=== PATIENT | female | born 1955 | race Caucasian/White ===

== ENCOUNTER 2016-07-24 11:06 | Day surgery (SDC) | payer OTHER ==
[~2016-07-24] VITALS: Ht 160 cm; Wt 109.0 kg
[~2016-07-24 11:06] MED LIST: FENTANYL PF 250 MCG/5ML ONE; MIDAZOLAM 1 MG/ML, 2ML ONE
[2016-07-24] MEDS ORDERED: LACTATED RINGERS 1,000 ML IV SCH (11:30)
[2016-07-24 12:00] VITALS: BP 162/79
[2016-07-24] MEDS ORDERED: METOPROLOL 1 MG/ML, 5ML ONE (12:05)
[2016-07-24] MEDS ORDERED: ONDANSETRON 2MG/ML, 2ML ONE ×2 (12:05→13:15)
[2016-07-24] MEDS ORDERED: SUCCINYLCHOLINE 20 MG/ML, 10ML ONE (12:05)
[2016-07-24] MEDS ORDERED: GLYCOPYRROLATE 0.2MG/1ML ONE (12:05)
[2016-07-24] MEDS ORDERED: ROCURONIUM 10 MG/ML ONE (12:05)
[2016-07-24] MEDS ORDERED: NEOSTIGMINE 1 MG/ML, 10ML ONE (12:05)
[2016-07-24] MEDS ORDERED: PROPOFOL 10 MG/ML, 20ML ONE (12:05)
[2016-07-24] MEDS ORDERED: INSU100V13 SQ-INSULIN (12:18)
[2016-07-24] MEDS ORDERED: FOLI-17 PO (12:18)
[2016-07-24] MEDS ORDERED: LACT10SO28 PO (12:18)
[2016-07-24] MEDS ORDERED: ATOR20TA9 PO (12:18)
[2016-07-24] MEDS ORDERED: LOSA25TA5 PO (12:18)
[2016-07-24] MEDS ORDERED: IRON PO (12:18)
[2016-07-24] MEDS ORDERED: DOCU100C8 PO (12:18)
[2016-07-24] MEDS ORDERED: CHOL200024 PO (12:18)
[2016-07-24] MEDS ORDERED: PRAS1TAB3 PO (12:18)
[2016-07-24] MEDS ORDERED: CELE200C PO (12:18)
[2016-07-24] MEDS ORDERED: HYDR-3144 PO (12:18)
[2016-07-24] MEDS ORDERED: MULT1TAB9 PO (12:18)
[2016-07-24] MEDS ORDERED: ASPI-496 PO (12:18)
[2016-07-24] MEDS ORDERED: VITAMIN B-12 PO (12:18)
[2016-07-24] MEDS ORDERED: PREG150C PO (12:18)
[2016-07-24] MEDS ORDERED: LACT1CAP35 PO (12:19)
[2016-07-24] MEDS ORDERED: ONDA-40 PO (12:19)
[2016-07-24] MEDS ORDERED: COLE625T2 PO (12:19)
[2016-07-24] MEDS ORDERED: PARO10TA3 PO (12:19)
[2016-07-24] MEDS ORDERED: OMEP-110 PO (12:19)
[2016-07-24] MEDS ORDERED: NORT25CA PO (12:19)
[2016-07-24] MEDS ORDERED: ZOLP12.54 PO (12:19)
[2016-07-24] MEDS ORDERED: PRED1TAB PO (12:19)
[2016-07-24] MEDS ORDERED: ALBU18HF INH (12:19)
[2016-07-24] MEDS ORDERED: METF10002 PO (12:19)
[2016-07-24] MEDS ORDERED: MAGN71.5 PO (12:19)
[2016-07-24] MEDS ORDERED: METO50TA82 PO (12:19)
[2016-07-24] MEDS ORDERED: MORP60TA PO (12:19)
[2016-07-24] MEDS ORDERED: LABETALOL 5MG/ML, 20ML IV PRN (13:30)
[2016-07-24] MEDS ORDERED: hydrALAzine 20 MG/ML, 1ML IV PRN (13:30)
[2016-07-24] MEDS ORDERED: OXYcodone 5 MG/5 ML ORAL.SOL UDC PO PRN (13:30)
[2016-07-24] MEDS ORDERED: EPHEDRINE 50 MG/ML, 1ML IVPush PRN (13:30)
[2016-07-24] MEDS ORDERED: ONDANSETRON 2MG/ML, 2ML IVPush PRN (13:30)
[2016-07-24] MEDS ORDERED: FENTANYL PF 100 MCG/2ML IV PRN (13:30)
[2016-07-24] MEDS ORDERED: morphine SULFATE 10 MG/ML, 1ML IV PRN (13:30)
[2016-07-24] MEDS ORDERED: METOPROLOL 1 MG/ML, 5ML IV PRN (13:30)
[2016-07-24] MEDS ORDERED: ALBUTEROL SULFATE 2.5 MG/3 ML NPPB PRN (13:30)
[2016-07-24] MEDS ORDERED: ACETAMINOPHEN 325 MG TABLET PO PRN (13:30)
[2016-07-24] MEDS ORDERED: PROMETHAZINE 25 MG/ML, 1ML IV PRN (13:30)
== END 2016-07-24 14:35 ==
LOC: OUT 11:06
PROVIDERS: ATTEND Internal Medicine Geriatric Medicine
DX: R10.9 Unspecified abdominal pain (principal); R11.2 Nausea with vomiting, unspecified; J45.909 Unspecified asthma, uncomplicated; E78.5 Hyperlipidemia, unspecified; E11.22 Type 2 diabetes mellitus with diabetic chronic kidney disease; I12.9 Hypertensive chronic kidney disease with stage 1 through stage 4 chronic kidney disease, or unspecified chronic kidney disease; N18.9 Chronic kidney disease, unspecified; D86.9 Sarcoidosis, unspecified; Z87.891 Personal history of nicotine dependence; Z82.49 Family history of ischemic heart disease and other diseases of the circulatory system; Z83.3 Family history of diabetes mellitus; Z80.42 Family history of malignant neoplasm of prostate; Z96.611 Presence of right artificial shoulder joint; Z98.84 Bariatric surgery status
CPT/HCPCS: 36415; 44376; 80047; J0330; J2250; J2405; J2704; J2710; J3010; J7120; J3490

== ENCOUNTER → 2016-08-23 | Outpatient (CLI) | payer OTHER ==
[~2016-08-23] MED LIST changes: +ALBU18HF INH; +ASPI-496 PO; +ATOR20TA9 PO; +CELE200C PO; +CHOL200024 PO; +COLE625T2 PO; +DOCU100C8 PO; -FENTANYL PF 250 MCG/5ML ONE; +FOLI-17 PO; +HYDR-3144 PO; +INSU100V13 SQ-INSULIN; +IRON PO; +LACT10SO28 PO; +LACT1CAP35 PO; +LOSA25TA5 PO; +MAGN71.5 PO; +METF10002 PO; +METO50TA82 PO; -MIDAZOLAM 1 MG/ML, 2ML ONE; +MORP60TA PO; +MULT1TAB9 PO; +NORT25CA PO; +OMEP-110 PO; +ONDA-40 PO; +PARO10TA3 PO; +PRAS1TAB3 PO; +PRED1TAB PO; +PREG150C PO; +VITAMIN B-12 PO; +ZOLP12.54 PO
== END | disposition home or self-care (01) ==
LOC: CARD 16:09
PROVIDERS: ATTEND Specialist
DX: D86.0 Sarcoidosis of lung (principal)
CPT/HCPCS: 94010; 94726; 94729

== ENCOUNTER 2017-01-19 05:11 | Emergency (ER) | payer OTHER ==
[~2017-01-19] VITALS: Ht 160 cm; Wt 117.3 kg
[~2017-01-19 05:11] MED LIST changes: +COLE625T12 PO; -COLE625T2 PO; +DOCU100C33 PO; -DOCU100C8 PO; -HYDR-3144 PO; +HYDR-3245 PO; -ONDA-40 PO; +ONDA8TAB15 PO
[2017-01-19 06:40] LABS: DAU SCREEN DISCLAIMER
[2017-01-19] MEDS ORDERED: HYDROmorphone 1 MG/ML, 1ML ONE (07:16)
[2017-01-19] MEDS ORDERED: ONDANSETRON ODT 4 MG ONE (07:17)
[2017-01-19] MEDS ORDERED: HYDROmorphone 1 MG/ML, 1ML IM ONE (07:30)
[2017-01-19] MEDS ORDERED: ONDANSETRON ODT 4 MG PO ONE (07:30)
[2017-01-19 08:52] VITALS: BP 146/88
== END 2017-01-19 09:00 | disposition home or self-care (01) ==
LOC: ED 05:58
DX: Z76.0 Encounter for issue of repeat prescription (principal); M25.511 Pain in right shoulder; M54.9 Dorsalgia, unspecified; G89.29 Other chronic pain; E11.9 Type 2 diabetes mellitus without complications; I10 Essential (primary) hypertension; M19.90 Unspecified osteoarthritis, unspecified site
CPT/HCPCS: 80307; 96372; 99283; J1170; Q0162; G0479

== ENCOUNTER 2017-04-08 10:45 | Emergency (ER) | payer OTHER ==
[~2017-04-08] VITALS: Ht 160 cm; Wt 120.0 kg
[~2017-04-08 10:45] MED LIST changes: +ATOR-2 PO; +CALCIUM PO; +DOCU100T3 PO; +LOSA100T6 PO; +LOSA50TA2 PO; +LUBI24CA7 PO; +METF500T9 PO; +METH2.5T PO; +METO-93 PO; +MORPHINE PO; +OXYC-302 PO; +PARO20TA4 PO; +PRAS10TA4 PO
[2017-04-08] MEDS ORDERED: LOSA100T6 PO (11:25)
[2017-04-08] MEDS ORDERED: ATOR20TA9 PO (11:25)
[2017-04-08] MEDS ORDERED: OXYC-307 PO (11:25)
[2017-04-08] MEDS ORDERED: LORazepam 2 MG/ML, 1ML IVPush ONE (11:30)
[2017-04-08] MEDS ORDERED: ONDANSETRON 2MG/ML, 2ML IVPush ONE (11:30)
[2017-04-08] MEDS ORDERED: HYDROmorphone 1 MG/ML, 1ML IVPush PRN ×2 (11:30→13:30)
[2017-04-08] MEDS ORDERED: SODIUM CHLORIDE FLUSH 10ML SYR IVF ONE (11:30)
[2017-04-08] MEDS ORDERED: SODIUM CHLORIDE 0.9% 1,000ML IVBOLUS ONE (11:30)
[2017-04-08] MEDS ORDERED: morphine SULFATE 10 MG/ML, 1ML ONE ×2 (11:39→14:16)
[2017-04-08] MEDS ORDERED: ONDANSETRON 2MG/ML, 2ML ONE (11:39)
[2017-04-08] MEDS ORDERED: LORazepam 2 MG/ML, 1ML ONE (11:40)
[2017-04-08 11:53] LABS: HEMATOCRIT 36.2 % (34.6-47.8); HEMOGLOBIN 11.9 g/dL (11.7-16.4); WHITE BLOOD COUNT 4.9 x10^3/uL (3.4-10)
[2017-04-08] MEDS: MORPHINE SULFATE 4 MG/ML, 1ML IVPush PRN ×2 (11:54→14:19)
[2017-04-08 12:03] LABS: BLOOD UREA NITROGEN 12 mg/dL (7-18)
[2017-04-08 12:07] LABS: ASPARTATE AMINO TRANSFERASE 20 U/L (15-37)
[2017-04-08 12:46] LABS: DAU SCREEN DISCLAIMER
[2017-04-08 17:01] VITALS: BP 134/70
== END 2017-04-08 17:04 | disposition home or self-care (01) ==
LOC: ED 13:42
DX: M25.511 Pain in right shoulder (principal); M25.561 Pain in right knee; R06.00 Dyspnea, unspecified; R10.84 Generalized abdominal pain; R11.2 Nausea with vomiting, unspecified; I12.9 Hypertensive chronic kidney disease with stage 1 through stage 4 chronic kidney disease, or unspecified chronic kidney disease; N18.3 Chronic kidney disease, stage 3 (moderate); E11.65 Type 2 diabetes mellitus with hyperglycemia; E11.22 Type 2 diabetes mellitus with diabetic chronic kidney disease; M79.7 Fibromyalgia; M19.90 Unspecified osteoarthritis, unspecified site; J44.9 Chronic obstructive pulmonary disease, unspecified; E66.01 Morbid (severe) obesity due to excess calories
CPT/HCPCS: 36415; 71010; 80053; 80307; 81001; 83605; 85025; 87077; 87086; 87147; 87186; 96361; 96374; 96375; 96376; 99285; J2060; J2405; J7030; G0479

== ENCOUNTER 2017-05-08 16:06 | Inpatient (IN) | payer OTHER ==
[~2017-05-08] VITALS: Ht 160 cm; Wt 112.2 kg
[~2017-05-08 16:06] MED LIST changes: +GABA300C10 PO; +ONDANSETRON 2MG/ML, 2ML ONE; +OXYC-307 PO; +PROPOFOL 10 MG/ML, 20ML ONE; +ROCURONIUM 10 MG/ML,10ML ONE; +SUCCINYLCHOLINE 20 MG/ML, 10ML ONE; +TIZA2CAP PO
[2017-05-08 17:12] VITALS: BP 136/85
[2017-05-08] MEDS ORDERED: ACETAMINOPHEN 325 MG TABLET PO PRN (18:00)
[2017-05-08] MEDS ORDERED: ONDANSETRON 2MG/ML, 2ML IVPush PRN (18:00)
[2017-05-08] MEDS ORDERED: hydrALAzine 20 MG/ML, 1ML IV PRN (18:00)
[2017-05-08] MEDS ORDERED: LABETALOL 5MG/ML, 20ML IV PRN (18:00)
[2017-05-08] MEDS ORDERED: PROMETHAZINE 25 MG/ML, 1ML IV PRN (18:00)
[2017-05-08] MEDS ORDERED: OXYcodone 5 MG/5 ML ORAL.SOL UDC PO PRN (18:00)
[2017-05-08] MEDS ORDERED: PLEASE ENTER HEIGHT AND WEIGHT MC SCH ×2 (18:30→21:00)
[2017-05-08] MEDS ORDERED: FENTANYL PF 250 MCG/5ML ONE (18:36)
[2017-05-08] MEDS ORDERED: VANCOMYCIN 1,000 MG ONE (19:11)
[2017-05-08] MEDS ORDERED: VANCOMYCIN 500 MG ONE (19:11)
[2017-05-08] MEDS ORDERED: PIPERACILLIN/TAZO/PMX 3.375GM 50 ML ONE (19:12)
[2017-05-08] MEDS: morphine SULFATE 10 MG/ML, 1ML IV PRN ×2 (19:51→20:08)
[2017-05-08] MEDS ORDERED: morphine SULFATE 10 MG/ML, 1ML ONE (19:53)
[2017-05-08] MEDS ORDERED: ACETAMINOPHEN 650 MG/20.3 ML UDC ONE (19:53)
[2017-05-08] MEDS ORDERED: OXYcodone 5 MG/5 ML ORAL.SOL UDC ONE (19:53)
[2017-05-08] MEDS ORDERED: FENTANYL PF 100 MCG/2ML ONE (20:10)
[2017-05-08] MEDS: FENTANYL PF 100 MCG/2ML IV PRN ×2 (20:12→20:31)
[2017-05-08 21:00] VITALS: BP 124/72
[2017-05-08] MEDS ORDERED: VANCOMYCIN PER PHARMACY MC PRN (23:00)
[2017-05-08] MEDS ORDERED: PHARMACOKINETIC CONSULTATION MC ONE (23:00)
[2017-05-08] MEDS ORDERED: PHARMACOKINETIC MONITORING MC PRN (23:00)
[2017-05-08] MEDS: OXYcodone IR 5MG TABLET PO PRN (23:20)
[2017-05-09] MEDS: MORPHINE SULFATE 4 MG/ML, 1ML IV PRN ×6 (01:15→22:36)
[2017-05-09] MEDS: PIPERACILLIN/TAZO/PMX 3.375GM 50 ML IV SCH ×3 (03:31→22:03)
[2017-05-09 03:55] VITALS: BP 109/64
[2017-05-09] MEDS: OXYcodone IR 5MG TABLET PO PRN ×5 (06:49→23:36)
[2017-05-09 08:23] VITALS: BP 118/76
[2017-05-09] MEDS: INSULIN ASPART 100 UNITS/ML, PEN SQ-INSULIN SCH ×4 (09:07→20:48)
[2017-05-09] MEDS: INSULIN DETEMIR 100 UNITS/ML, PEN SQ-INSULIN SCH ×2 (09:08→20:48)
[2017-05-09] MEDS: GABAPENTIN 300 MG CAPSULE PO SCH ×3 (09:08→20:30)
[2017-05-09] MEDS: LOSARTAN 50MG TABLET PO SCH (09:08)
[2017-05-09] MEDS: OMEPRAZOLE 20 MG CAPSULE.DR PO SCH (09:09)
[2017-05-09] MEDS: PRASUGREL 10 MG TABLET PO SCH (09:09)
[2017-05-09] MEDS: PAROXETINE 20 MG TABLET PO SCH (09:09)
[2017-05-09] MEDS: PREGABALIN 150 MG CAPSULE PO SCH ×2 (09:09→20:30)
[2017-05-09 15:23] VITALS: BP 120/72
[2017-05-09] MEDS ORDERED: ZOLPIDEM 10MG TABLET PO PRN (18:00)
[2017-05-09] MEDS ORDERED: VANCOMYCIN 2,000 MG in SODIUM CHLORIDE 0.9% 500 ML IV SCH (19:00)
[2017-05-09 19:01] LABS: HCT (SEDRATE) 24.3 % (34.6-47.8)
[2017-05-09 19:02] LABS: BASOPHILS # (AUTO) 0.08 x10^3/uL (0-0.1); BASOPHILS % (AUTO) 1 % (0-1); EOSINOPHILS # (AUTO) 0.22 x10^3/uL (0-0.4); EOSINOPHILS % (AUTO) 4 % (1-7); LYMPHOCYTES % (AUTO) 14 % (22-44); MD NO; MEAN CORPUSCULAR HEMOGLOBIN 31.4 pg (27.0-34.8); MEAN CORPUSCULAR HGB CONC 32.5 g/dL (32.4-35.8); MEAN CORPUSCULAR VOLUME 96.6 fL (80-100); MEAN PLATELET VOLUME 6.7 fL (7.4-10.4); MONOCYTES # (AUTO) 0.66 x10^3/uL (0.2-0.8); MONOCYTES % (AUTO) 11 % (2-9); NEUTROPHILS % (AUTO) 71 % (42-75); PLATELET COUNT 460 x10^3/uL (130-400); RED BLOOD COUNT 2.47 x10^6/uL (3.82-5.3); RED CELL DISTRIBUTION WIDTH 15.8 % (9.6-15.2)
[2017-05-09 19:14] LABS: ANION GAP 8 mmol/L (5-15); CALCIUM 7.9 mg/dL (8.5-10.1); CHLORIDE 109 mmol/L (98-107); CREATININE 1.07 mg/dL (0.55-1.02)
[2017-05-09 19:27] VITALS: BP 124/72
[2017-05-09] MEDS: ATORVASTATIN 20 MG TABLET PO SCH (20:30)
[2017-05-09] MEDS: METOPROLOL SUCCINATE 50 MG TAB.ER.24H PO SCH (20:30)
[2017-05-09] MEDS: NORTRIPTYLINE 25 MG CAPSULE PO SCH (20:30)
[2017-05-10] MEDS: PIPERACILLIN/TAZO/PMX 3.375GM 50 ML IV SCH ×3 (04:16→21:46)
[2017-05-10] MEDS: OXYcodone IR 5MG TABLET PO PRN ×6 (04:16→21:48)
[2017-05-10 04:18] VITALS: BP 153/88
[2017-05-10] MEDS: INSULIN ASPART 100 UNITS/ML, PEN SQ-INSULIN SCH ×4 (07:00→22:19)
[2017-05-10 07:34] VITALS: BP 155/84
[2017-05-10] MEDS ORDERED: ZOLPIDEM 10MG TABLET PO PRN (08:00)
[2017-05-10] MEDS: MORPHINE SULFATE 4 MG/ML, 1ML IV PRN ×4 (08:05→19:55)
[2017-05-10] MEDS ORDERED: OXYcodone IR 5MG TABLET ONE ×2 (08:32→13:50)
[2017-05-10] MEDS: ASPIRIN 81 MG TABLET EC PO SCH (08:39)
[2017-05-10] MEDS: FOLIC ACID 1 MG TABLET PO SCH ×2 (08:39→21:47)
[2017-05-10] MEDS: MAGNESIUM CHLORIDE 64 MG TABLET.DR PO SCH ×2 (08:39→21:46)
[2017-05-10] MEDS: MULTIVITAMIN 1 TABLET PO SCH (08:40)
[2017-05-10] MEDS: LACTOBACILLUS CHEW TABLET PO SCH (08:40)
[2017-05-10] MEDS: DOCUSATE 100 MG CAPSULE PO SCH ×2 (08:40→22:18)
[2017-05-10] MEDS: COLESEVELAM 625 MG TABLET PO SCH ×2 (08:41→21:47)
[2017-05-10] MEDS: GABAPENTIN 300 MG CAPSULE PO SCH ×2 (08:41→17:18)
[2017-05-10] MEDS: LUBIPROSTONE 24 MCG CAPSULE PO SCH ×2 (08:41→21:46)
[2017-05-10] MEDS: OMEPRAZOLE 20 MG CAPSULE.DR PO SCH (08:42)
[2017-05-10] MEDS: PRASUGREL 10 MG TABLET PO SCH (08:44)
[2017-05-10] MEDS: LOSARTAN 50MG TABLET PO SCH (08:44)
[2017-05-10] MEDS: PREGABALIN 150 MG CAPSULE PO SCH ×2 (08:45→21:47)
[2017-05-10] MEDS: PAROXETINE 20 MG TABLET PO SCH (08:45)
[2017-05-10] MEDS: CALCIUM CARBONATE 500 MG TAB.CHEW PO SCH (08:46)
[2017-05-10] MEDS ORDERED: LACTULOSE 10 GM/15 ML UDC PO SCH (09:00)
[2017-05-10] MEDS ORDERED: LACTULOSE 10 GM/15 ML UDC PO PRN (09:30)
[2017-05-10] MEDS: FERROUS SULFATE 325 MG TABLET PO SCH (10:17)
[2017-05-10] MEDS: TIZANIDINE 2MG TABLET PO SCH ×2 (10:17→21:47)
[2017-05-10] MEDS: INSULIN DETEMIR 100 UNITS/ML, PEN SQ-INSULIN SCH ×2 (10:19→22:19)
[2017-05-10 14:08] VITALS: BP 153/84
[2017-05-10 19:14] VITALS: BP 153/87
[2017-05-10] MEDS ORDERED: MORPHINE SULFATE 4 MG/ML, 1ML ONE (19:45)
[2017-05-10] MEDS ORDERED: OXYcodone/APAP 10/325MG TABLET PO SCH (21:00)
[2017-05-10] MEDS ORDERED: MORPHINE SULFATE 4 MG/ML, 1ML IV PRN (21:00)
[2017-05-10] MEDS: NORTRIPTYLINE 25 MG CAPSULE PO SCH (21:46)
[2017-05-10] MEDS: METOPROLOL SUCCINATE 50 MG TAB.ER.24H PO SCH (21:47)
[2017-05-10] MEDS: ATORVASTATIN 20 MG TABLET PO SCH (21:47)
[2017-05-10] MEDS: ZOLPIDEM 10MG TABLET PO PRN (22:18)
[2017-05-11 02:37] VITALS: BP 144/76
[2017-05-11] MEDS: OXYcodone IR 5MG TABLET PO PRN ×5 (02:52→23:06)
[2017-05-11] MEDS: MORPHINE SULFATE 4 MG/ML, 1ML IV PRN ×4 (05:06→20:48)
[2017-05-11] MEDS: PIPERACILLIN/TAZO/PMX 3.375GM 50 ML IV SCH ×2 (05:06→13:44)
[2017-05-11 05:41] LABS: CHLORIDE 110 mmol/L (98-107)
[2017-05-11 05:59] LABS: ALANINE AMINOTRANSFERASE 15 U/L (12-78); ALBUMIN 2.2 g/dL (3.4-5.0); ALKALINE PHOSPHATASE 88 U/L (45-117); ANION GAP 9 mmol/L (5-15); BILIRUBIN,TOTAL 0.2 mg/dL (0.2-1.0); CALCIUM 8.4 mg/dL (8.5-10.1); CREATININE 0.89 mg/dL (0.55-1.02); TOTAL PROTEIN 5.5 g/dL (6.4-8.2)
[2017-05-11 06:09] LABS: HEMOGLOBIN A1C 8.1 % (4.2-6.3)
[2017-05-11] MEDS: INSULIN ASPART 100 UNITS/ML, PEN SQ-INSULIN SCH ×4 (06:59→21:00)
[2017-05-11 07:05] VITALS: BP 127/78
[2017-05-11] MEDS: DOCUSATE 100 MG CAPSULE PO SCH ×2 (08:21→20:49)
[2017-05-11] MEDS: LACTOBACILLUS CHEW TABLET PO SCH (08:21)
[2017-05-11] MEDS: FERROUS SULFATE 325 MG TABLET PO SCH (08:21)
[2017-05-11] MEDS: PREGABALIN 150 MG CAPSULE PO SCH ×2 (08:22→20:50)
[2017-05-11] MEDS: FOLIC ACID 1 MG TABLET PO SCH ×2 (08:22→20:49)
[2017-05-11] MEDS: CALCIUM CARBONATE 500 MG TAB.CHEW PO SCH (08:22)
[2017-05-11] MEDS: LOSARTAN 50MG TABLET PO SCH (08:22)
[2017-05-11] MEDS: MULTIVITAMIN 1 TABLET PO SCH (08:22)
[2017-05-11] MEDS: OMEPRAZOLE 20 MG CAPSULE.DR PO SCH (08:23)
[2017-05-11] MEDS: COLESEVELAM 625 MG TABLET PO SCH ×2 (08:23→20:49)
[2017-05-11] MEDS: PAROXETINE 20 MG TABLET PO SCH (08:23)
[2017-05-11] MEDS: ASPIRIN 81 MG TABLET EC PO SCH (08:23)
[2017-05-11] MEDS: TIZANIDINE 2MG TABLET PO SCH ×2 (08:24→20:50)
[2017-05-11] MEDS: LUBIPROSTONE 24 MCG CAPSULE PO SCH ×2 (08:24→20:50)
[2017-05-11] MEDS: MAGNESIUM CHLORIDE 64 MG TABLET.DR PO SCH ×2 (08:25→20:49)
[2017-05-11] MEDS: PRASUGREL 10 MG TABLET PO SCH (08:26)
[2017-05-11] MEDS: INSULIN DETEMIR 100 UNITS/ML, PEN SQ-INSULIN SCH ×2 (08:27→21:35)
[2017-05-11 13:35] VITALS: BP 119/79
[2017-05-11] MEDS: CEFTRIAXONE PMX 2GM/50ML 50 ML IV SCH (17:45)
[2017-05-11] MEDS: NORTRIPTYLINE 25 MG CAPSULE PO SCH (20:49)
[2017-05-11] MEDS: ATORVASTATIN 20 MG TABLET PO SCH (20:49)
[2017-05-11] MEDS: METOPROLOL SUCCINATE 50 MG TAB.ER.24H PO SCH (20:49)
[2017-05-11 22:27] VITALS: BP 113/71
[2017-05-11] MEDS: ZOLPIDEM 10MG TABLET PO PRN (23:06)
[2017-05-12] MEDS: OXYcodone IR 5MG TABLET PO PRN ×5 (03:05→20:57)
[2017-05-12 04:11] VITALS: BP 118/75
[2017-05-12] MEDS: INSULIN ASPART 100 UNITS/ML, PEN SQ-INSULIN SCH ×4 (06:46→20:57)
[2017-05-12 07:21] VITALS: BP 95/62
[2017-05-12] MEDS: MORPHINE SULFATE 4 MG/ML, 1ML IV PRN ×3 (08:42→23:01)
[2017-05-12] MEDS: DOCUSATE 100 MG CAPSULE PO SCH ×2 (08:43→20:56)
[2017-05-12] MEDS: LACTOBACILLUS CHEW TABLET PO SCH (08:43)
[2017-05-12] MEDS: OMEPRAZOLE 20 MG CAPSULE.DR PO SCH (08:43)
[2017-05-12] MEDS: MAGNESIUM CHLORIDE 64 MG TABLET.DR PO SCH ×2 (08:43→20:56)
[2017-05-12] MEDS: FOLIC ACID 1 MG TABLET PO SCH ×2 (08:43→20:56)
[2017-05-12] MEDS: CALCIUM CARBONATE 500 MG TAB.CHEW PO SCH (08:43)
[2017-05-12] MEDS: ASPIRIN 81 MG TABLET EC PO SCH (08:43)
[2017-05-12] MEDS: LUBIPROSTONE 24 MCG CAPSULE PO SCH ×2 (08:44→20:55)
[2017-05-12] MEDS: COLESEVELAM 625 MG TABLET PO SCH ×2 (08:45→20:56)
[2017-05-12] MEDS: TIZANIDINE 2MG TABLET PO SCH ×2 (08:45→23:01)
[2017-05-12] MEDS: LOSARTAN 50MG TABLET PO SCH (08:45)
[2017-05-12] MEDS: MULTIVITAMIN 1 TABLET PO SCH (08:46)
[2017-05-12] MEDS: PAROXETINE 20 MG TABLET PO SCH (08:46)
[2017-05-12] MEDS: PRASUGREL 10 MG TABLET PO SCH (08:47)
[2017-05-12] MEDS: FERROUS SULFATE 325 MG TABLET PO SCH (08:47)
[2017-05-12] MEDS: PREGABALIN 150 MG CAPSULE PO SCH ×2 (08:47→20:56)
[2017-05-12] MEDS: INSULIN DETEMIR 100 UNITS/ML, PEN SQ-INSULIN SCH ×2 (08:52→20:58)
[2017-05-12 14:00] VITALS: BP 103/68
[2017-05-12] MEDS: CEFTRIAXONE PMX 2GM/50ML 50 ML IV SCH (17:58)
[2017-05-12 20:49] VITALS: BP 125/75
[2017-05-12] MEDS: NORTRIPTYLINE 25 MG CAPSULE PO SCH (20:55)
[2017-05-12] MEDS: ATORVASTATIN 20 MG TABLET PO SCH (20:56)
[2017-05-12] MEDS: METOPROLOL SUCCINATE 50 MG TAB.ER.24H PO SCH (20:56)
[2017-05-12 21:03] VITALS: BP 124/72
[2017-05-13] MEDS: OXYcodone IR 5MG TABLET PO PRN ×5 (01:13→21:54)
[2017-05-13 05:11] VITALS: BP 107/68
[2017-05-13] MEDS: INSULIN ASPART 100 UNITS/ML, PEN SQ-INSULIN SCH ×4 (07:03→21:54)
[2017-05-13 07:10] VITALS: BP 115/72
[2017-05-13] MEDS: MORPHINE SULFATE 4 MG/ML, 1ML IV PRN ×3 (08:17→21:19)
[2017-05-13] MEDS: FERROUS SULFATE 325 MG TABLET PO SCH (08:18)
[2017-05-13] MEDS: MULTIVITAMIN 1 TABLET PO SCH (08:18)
[2017-05-13] MEDS: PREGABALIN 150 MG CAPSULE PO SCH ×2 (08:18→21:22)
[2017-05-13] MEDS: DOCUSATE 100 MG CAPSULE PO SCH ×2 (08:18→21:23)
[2017-05-13] MEDS: LUBIPROSTONE 24 MCG CAPSULE PO SCH ×2 (08:18→21:22)
[2017-05-13] MEDS: MAGNESIUM CHLORIDE 64 MG TABLET.DR PO SCH ×2 (08:18→21:22)
[2017-05-13] MEDS: PRASUGREL 10 MG TABLET PO SCH (08:19)
[2017-05-13] MEDS: COLESEVELAM 625 MG TABLET PO SCH ×2 (08:19→21:22)
[2017-05-13] MEDS: ASPIRIN 81 MG TABLET EC PO SCH (08:19)
[2017-05-13] MEDS: LACTOBACILLUS CHEW TABLET PO SCH (08:19)
[2017-05-13] MEDS: LOSARTAN 50MG TABLET PO SCH (08:19)
[2017-05-13] MEDS: TIZANIDINE 2MG TABLET PO SCH ×2 (08:20→22:52)
[2017-05-13] MEDS: CALCIUM CARBONATE 500 MG TAB.CHEW PO SCH (08:20)
[2017-05-13] MEDS: FOLIC ACID 1 MG TABLET PO SCH ×2 (08:20→21:23)
[2017-05-13] MEDS: PAROXETINE 20 MG TABLET PO SCH (08:20)
[2017-05-13] MEDS: OMEPRAZOLE 20 MG CAPSULE.DR PO SCH (08:21)
[2017-05-13] MEDS: INSULIN DETEMIR 100 UNITS/ML, PEN SQ-INSULIN SCH ×2 (08:28→21:54)
[2017-05-13 14:13] VITALS: BP 143/78
[2017-05-13] MEDS: CEFTRIAXONE PMX 2GM/50ML 50 ML IV SCH (17:59)
[2017-05-13 20:28] VITALS: BP 136/84
[2017-05-13] MEDS: METOPROLOL SUCCINATE 50 MG TAB.ER.24H PO SCH (21:22)
[2017-05-13] MEDS: ATORVASTATIN 20 MG TABLET PO SCH (21:22)
[2017-05-13] MEDS: NORTRIPTYLINE 25 MG CAPSULE PO SCH (21:22)
[2017-05-14 02:05] VITALS: BP 133/81
[2017-05-14] MEDS: OXYcodone IR 5MG TABLET PO PRN ×5 (02:09→21:40)
[2017-05-14 06:07] LABS: BASOPHILS # (AUTO) 0.04 x10^3/uL (0-0.1); BASOPHILS % (AUTO) 1 % (0-1); EOSINOPHILS # (AUTO) 0.31 x10^3/uL (0-0.4); EOSINOPHILS % (AUTO) 5 % (1-7); LYMPHOCYTES # (AUTO) 1.09 x10^3/uL (1-3.4); LYMPHOCYTES % (AUTO) 19 % (22-44); MD NO; MEAN CORPUSCULAR HEMOGLOBIN 31.4 pg (27.0-34.8); MEAN CORPUSCULAR VOLUME 95.2 fL (80-100); MEAN PLATELET VOLUME 6.3 fL (7.4-10.4); MONOCYTES % (AUTO) 12 % (2-9); NEUTROPHILS # (AUTO) 3.69 x10^3/uL (1.8-6.8); NEUTROPHILS % (AUTO) 63 % (42-75); PLATELET COUNT 548 x10^3/uL (130-400); RED BLOOD COUNT 2.56 x10^6/uL (3.82-5.3); RED CELL DISTRIBUTION WIDTH 15.9 % (9.6-15.2)
[2017-05-14 07:18] VITALS: BP 120/68
[2017-05-14] MEDS: MORPHINE SULFATE 4 MG/ML, 1ML IV PRN ×3 (08:25→19:34)
[2017-05-14] MEDS: MULTIVITAMIN 1 TABLET PO SCH (08:46)
[2017-05-14] MEDS: DOCUSATE 100 MG CAPSULE PO SCH ×2 (08:46→19:55)
[2017-05-14] MEDS: PAROXETINE 20 MG TABLET PO SCH (08:47)
[2017-05-14] MEDS: FOLIC ACID 1 MG TABLET PO SCH ×2 (08:47→19:55)
[2017-05-14] MEDS: LOSARTAN 50MG TABLET PO SCH (08:47)
[2017-05-14] MEDS: MAGNESIUM CHLORIDE 64 MG TABLET.DR PO SCH ×2 (08:47→19:54)
[2017-05-14] MEDS: FERROUS SULFATE 325 MG TABLET PO SCH (08:48)
[2017-05-14] MEDS: LACTOBACILLUS CHEW TABLET PO SCH (08:48)
[2017-05-14] MEDS: CALCIUM CARBONATE 500 MG TAB.CHEW PO SCH (08:48)
[2017-05-14] MEDS: ASPIRIN 81 MG TABLET EC PO SCH (08:48)
[2017-05-14] MEDS: PREGABALIN 150 MG CAPSULE PO SCH ×2 (08:49→19:55)
[2017-05-14] MEDS: LUBIPROSTONE 24 MCG CAPSULE PO SCH ×2 (08:49→19:55)
[2017-05-14] MEDS: PRASUGREL 10 MG TABLET PO SCH (08:52)
[2017-05-14] MEDS: INSULIN DETEMIR 100 UNITS/ML, PEN SQ-INSULIN SCH ×2 (08:53→19:56)
[2017-05-14] MEDS: INSULIN ASPART 100 UNITS/ML, PEN SQ-INSULIN SCH ×4 (08:53→19:56)
[2017-05-14] MEDS: COLESEVELAM 625 MG TABLET PO SCH ×2 (08:54→19:55)
[2017-05-14] MEDS: TIZANIDINE 2MG TABLET PO SCH ×2 (08:54→21:00)
[2017-05-14] MEDS: OMEPRAZOLE 20 MG CAPSULE.DR PO SCH (08:54)
[2017-05-14] MEDS ORDERED: METHOTREXATE 2.5 MG TABLET PO SCH (09:00)
[2017-05-14 12:48] VITALS: BP 129/73
[2017-05-14] MEDS: CEFTRIAXONE PMX 2GM/50ML 50 ML IV SCH (17:03)
[2017-05-14 19:32] VITALS: BP 109/71
[2017-05-14] MEDS: ATORVASTATIN 20 MG TABLET PO SCH (19:54)
[2017-05-14] MEDS: NORTRIPTYLINE 25 MG CAPSULE PO SCH (19:54)
[2017-05-14] MEDS: METOPROLOL SUCCINATE 50 MG TAB.ER.24H PO SCH (19:55)
[2017-05-14] MEDS: ZOLPIDEM 10MG TABLET PO PRN (22:20)
[2017-05-15 02:23] VITALS: BP 147/75
[2017-05-15] MEDS: OXYcodone IR 5MG TABLET PO PRN ×4 (02:23→16:56)
[2017-05-15] MEDS: INSULIN ASPART 100 UNITS/ML, PEN SQ-INSULIN SCH ×4 (07:00→21:33)
[2017-05-15 07:26] VITALS: BP 112/71
[2017-05-15] MEDS: TIZANIDINE 2MG TABLET PO SCH ×2 (09:00→21:23)
[2017-05-15] MEDS: MAGNESIUM CHLORIDE 64 MG TABLET.DR PO SCH ×2 (09:19→21:21)
[2017-05-15] MEDS: PAROXETINE 20 MG TABLET PO SCH (09:19)
[2017-05-15] MEDS: FERROUS SULFATE 325 MG TABLET PO SCH (09:19)
[2017-05-15] MEDS: FOLIC ACID 1 MG TABLET PO SCH ×2 (09:19→21:22)
[2017-05-15] MEDS: CALCIUM CARBONATE 500 MG TAB.CHEW PO SCH (09:20)
[2017-05-15] MEDS: OMEPRAZOLE 20 MG CAPSULE.DR PO SCH (09:20)
[2017-05-15] MEDS: MULTIVITAMIN 1 TABLET PO SCH (09:20)
[2017-05-15] MEDS: ASPIRIN 81 MG TABLET EC PO SCH (09:20)
[2017-05-15] MEDS: LOSARTAN 50MG TABLET PO SCH (09:20)
[2017-05-15] MEDS: COLESEVELAM 625 MG TABLET PO SCH ×2 (09:20→21:22)
[2017-05-15] MEDS: LACTOBACILLUS CHEW TABLET PO SCH (09:20)
[2017-05-15] MEDS: PRASUGREL 10 MG TABLET PO SCH (09:21)
[2017-05-15] MEDS: LUBIPROSTONE 24 MCG CAPSULE PO SCH ×2 (09:21→21:23)
[2017-05-15] MEDS: DOCUSATE 100 MG CAPSULE PO SCH ×2 (09:21→21:22)
[2017-05-15] MEDS: MORPHINE SULFATE 4 MG/ML, 1ML IV PRN ×2 (09:21→14:46)
[2017-05-15] MEDS: PREGABALIN 150 MG CAPSULE PO SCH ×2 (09:21→21:23)
[2017-05-15] MEDS: INSULIN DETEMIR 100 UNITS/ML, PEN SQ-INSULIN SCH ×2 (09:23→21:32)
[2017-05-15] MEDS ORDERED: CEFT2FRO2 IV (10:42)
[2017-05-15 13:35] VITALS: BP 111/71
[2017-05-15] MEDS: CEFTRIAXONE PMX 2GM/50ML 50 ML IV SCH (16:57)
[2017-05-15 20:00] VITALS: BP 126/89
[2017-05-15] MEDS: NORTRIPTYLINE 25 MG CAPSULE PO SCH (21:22)
[2017-05-15] MEDS: ATORVASTATIN 20 MG TABLET PO SCH (21:22)
[2017-05-15] MEDS: ZOLPIDEM 10MG TABLET PO PRN (21:22)
[2017-05-15] MEDS: METOPROLOL SUCCINATE 50 MG TAB.ER.24H PO SCH (21:23)
[2017-05-16] MEDS: OXYcodone IR 5MG TABLET PO PRN ×3 (00:41→13:21)
[2017-05-16 04:54] VITALS: BP 128/72
[2017-05-16] MEDS: INSULIN ASPART 100 UNITS/ML, PEN SQ-INSULIN SCH ×2 (06:38→11:28)
[2017-05-16] MEDS: OMEPRAZOLE 20 MG CAPSULE.DR PO SCH (07:54)
[2017-05-16] MEDS: FOLIC ACID 1 MG TABLET PO SCH (07:56)
[2017-05-16] MEDS: MULTIVITAMIN 1 TABLET PO SCH (07:56)
[2017-05-16] MEDS: PAROXETINE 20 MG TABLET PO SCH (07:56)
[2017-05-16] MEDS: LACTOBACILLUS CHEW TABLET PO SCH (07:56)
[2017-05-16] MEDS: LOSARTAN 50MG TABLET PO SCH (07:57)
[2017-05-16] MEDS: CALCIUM CARBONATE 500 MG TAB.CHEW PO SCH (07:57)
[2017-05-16] MEDS: MAGNESIUM CHLORIDE 64 MG TABLET.DR PO SCH (07:57)
[2017-05-16] MEDS: DOCUSATE 100 MG CAPSULE PO SCH (07:57)
[2017-05-16] MEDS: ASPIRIN 81 MG TABLET EC PO SCH (07:57)
[2017-05-16] MEDS: FERROUS SULFATE 325 MG TABLET PO SCH (07:57)
[2017-05-16] MEDS: COLESEVELAM 625 MG TABLET PO SCH (07:57)
[2017-05-16] MEDS: LUBIPROSTONE 24 MCG CAPSULE PO SCH (07:58)
[2017-05-16] MEDS: PRASUGREL 10 MG TABLET PO SCH (07:58)
[2017-05-16] MEDS: TIZANIDINE 2MG TABLET PO SCH (07:58)
[2017-05-16] MEDS: PREGABALIN 150 MG CAPSULE PO SCH (07:59)
[2017-05-16 08:00] VITALS: BP 110/71
[2017-05-16 08:36] LABS: ANION GAP 6 mmol/L (5-15); CALCIUM 8.7 mg/dL (8.5-10.1); CHLORIDE 106 mmol/L (98-107); CREATININE 0.92 mg/dL (0.55-1.02)
[2017-05-16] MEDS: INSULIN DETEMIR 100 UNITS/ML, PEN SQ-INSULIN SCH (10:07)
[2017-05-16] MEDS: MORPHINE SULFATE 4 MG/ML, 1ML IV PRN (11:28)
[2017-05-16 13:28] VITALS: BP 120/69
[2017-05-16] MEDS ORDERED: ONDA4TAB10 PO (15:57)
[2017-05-16] MEDS ORDERED: INSU100I18 SQ-INSULIN (15:57)
[2017-05-16] MEDS ORDERED: CEFTRIAXONE 2,000 MG in DEXTROSE 5% 50 ML IV SCH (17:30)
== END 2017-05-16 16:05 | DRG 463 ==
LOC: OUT 16:06 → 4NOR 17:05 → OUT 22:36
PROVIDERS: ADMIT Orthopaedic Surgery; ATTEND Family Medicine
PROC: 0JBD0ZZ Excision of Right Upper Arm Subcutaneous Tissue and Fascia, Open Approach (ICD-10-PCS; principal; 2017-05-08 18:00)
PROC: 02HV33Z Insertion of Infusion Device into Superior Vena Cava, Percutaneous Approach (ICD-10-PCS; 2017-05-13)
PROC: B548ZZA Ultrasonography of Superior Vena Cava, Guidance (ICD-10-PCS; 2017-05-13)
DX: T84.59XA Infection and inflammatory reaction due to other internal joint prosthesis, initial encounter (principal); E43 Unspecified severe protein-calorie malnutrition; E11.22 Type 2 diabetes mellitus with diabetic chronic kidney disease; E23.0 Hypopituitarism; E11.69 Type 2 diabetes mellitus with other specified complication; L03.115 Cellulitis of right lower limb; I12.0 Hypertensive chronic kidney disease with stage 5 chronic kidney disease or end stage renal disease; N18.5 Chronic kidney disease, stage 5; E27.40 Unspecified adrenocortical insufficiency; J44.0 Chronic obstructive pulmonary disease with (acute) lower respiratory infection; Z68.41 Body mass index [BMI] 40.0-44.9, adult; M86.8X2 Other osteomyelitis, upper arm; G89.29 Other chronic pain; D86.9 Sarcoidosis, unspecified; E78.5 Hyperlipidemia, unspecified; Z96.611 Presence of right artificial shoulder joint; Y83.9 Surgical procedure, unspecified as the cause of abnormal reaction of the patient, or of later complication, without mention of misadventure at the time of the procedure; H40.9 Unspecified glaucoma; B95.4 Other streptococcus as the cause of diseases classified elsewhere; I25.10 Atherosclerotic heart disease of native coronary artery without angina pectoris; K21.9 Gastro-esophageal reflux disease without esophagitis; L91.0 Hypertrophic scar; N20.0 Calculus of kidney; Z79.4 Long term (current) use of insulin; Z87.440 Personal history of urinary (tract) infections; Z87.891 Personal history of nicotine dependence; Z90.49 Acquired absence of other specified parts of digestive tract; Z98.84 Bariatric surgery status; Y92.89 Other specified places as the place of occurrence of the external cause; I25.2 Old myocardial infarction; Z79.899 Other long term (current) drug therapy; Z88.0 Allergy status to penicillin; Z88.5 Allergy status to narcotic agent; Z88.8 Allergy status to other drugs, medicaments and biological substances; E66.01 Morbid (severe) obesity due to excess calories
CPT/HCPCS: 10022; 36415; 76937; 77001; 80048; 80053; 82306; 82962; 83036; 85025; 85651; 86140; 87040; 87070; 87075; 87077; 87205; J0696; J1815; J2405; J2543; J2704; J3010; J3370; J7512; J8610; C1751; J0330; J2270; J7040

== ENCOUNTER 2021-01-09 23:14 | Inpatient (IN) | payer MEDICARE ==
[~2021-01-09] VITALS: Ht 160 cm; Wt 130.7 kg
[~2021-01-09 23:14] MED LIST changes: +ALBU2.5V NPPB; +ATOR20TA37 PO; -ATOR20TA9 PO; +AZIT250T89 PO; +CEFT2FRO2 IV; +CEPH-376 PO; -FOLI-17 PO; +FOLI1TAB32 PO; +FURO20TA3 PO; -HYDR-3245 PO; +HYDR1TAB53 PO; +INSU100I18 SQ-INSULIN; +LOSA100T14 PO; -LOSA100T6 PO; +LOSA25TA25 PO; -LOSA25TA5 PO; +METF-754 PO; -METF500T9 PO; -MORP60TA PO; +MORP60TA22 PO; +MORP60TA63 PO; -NORT25CA PO; +NORT25CA78 PO; +ONDA4TAB10 PO; -ONDA8TAB15 PO; +ONDA8TAB18 PO; -ONDANSETRON 2MG/ML, 2ML ONE; -OXYC-302 PO; -OXYC-307 PO; +OXYC-501 PO; +OXYC10TA6 PO; +OXYC1TAB12 PO; +PRED10TA PO; -PRED1TAB PO; +PRED1TAB19 PO; -PROPOFOL 10 MG/ML, 20ML ONE; -ROCURONIUM 10 MG/ML,10ML ONE; +SPIR25TA PO; -SUCCINYLCHOLINE 20 MG/ML, 10ML ONE; -ZOLP12.54 PO; +ZOLP12.56 PO
[2021-01-10] MEDS ORDERED: CEFAZOLIN PMX 1GM/50ML 0 ML ONE (00:23)
[2021-01-10] MEDS ORDERED: MORPHINE SULFATE 4 MG/ML, 1ML ONE ×2 (00:23→04:10)
[2021-01-10] MEDS ORDERED: SODIUM CHLORIDE FLUSH 10ML SYR IVF ONE (00:30)
[2021-01-10] MEDS ORDERED: VANCOMYCIN PER PHARMACY MC ONE (00:30)
[2021-01-10] MEDS ORDERED: MORPHINE SULFATE 4 MG/ML, 1ML IV PRN (00:30)
[2021-01-10] MEDS ORDERED: VANCOMYCIN 2,500 MG in SODIUM CHLORIDE 0.9% 500 ML IV ONE (00:30)
[2021-01-10] MEDS ORDERED: CEFAZOLIN PMX 1GM/50ML 50 ML IVPB ONE (00:30)
--- NOTE | 2021-01-10 00:56 | NUR ---
PT C/O OF INFECTION ON LEG THAT APPEARS WHITE PUSSY BUMP. WOUND STARTED A WEEK AGO THAT HAS GOTTEN WORSE. [facility] WALKED PT TO BATHROOM AND PT FELL HITTING HER FACE AND HEAD. PT HAS DISCOLORED BUMP ON LEFT SIDE OF HEAD. PT STATES PAIN RADIATES TO OTHER SIDE OF HEAD. PT RIGHT LEG APPEARS REDDENED AND SWOLLEN PT A&OX4, BREATHING EVEN AND UNLABORED. ATTACHED TO CARD/SP02/BP MONITORS. VSS. NADN BED IN LOW. RAILS ENGAGED, CALL LIGHT ON LAP. PT IN GOWN. AT BEDSIDE
--- NOTE | 2021-01-10 00:56 | NUR ---
US AT BEDSIDE. ERROL
[2021-01-10 01:01] LABS: BASOPHILS % (AUTO) 0 % (0-1); EOSINOPHILS % (AUTO) 1 % (1-7); LYMPHOCYTES % (AUTO) 3 % (22-44); MEAN CORPUSCULAR HEMOGLOBIN 32.4 pg (27.0-34.8); MEAN CORPUSCULAR HGB CONC 31.5 g/dL (32.4-35.8); MEAN PLATELET VOLUME 7.7 fL (7.4-10.4); MONOCYTES % (AUTO) 4 % (2-9); NEUTROPHILS % (AUTO) 92 % (42-75); PLATELET COUNT 327 x10^3/uL (130-400); RED BLOOD COUNT 3.58 x10^6/uL (3.82-5.3); RED CELL DISTRIBUTION WIDTH 17.9 % (9.6-15.2)
[2021-01-10 01:06] LABS: ALANINE AMINOTRANSFERASE 28 U/L (12-78); ALBUMIN 2.8 g/dL (3.4-5.0); ANION GAP 5 mmol/L (5-15); CALCIUM 8.6 mg/dL (8.5-10.1); CHLORIDE 109 mmol/L (98-107); CREATININE 1.51 mg/dL (0.55-1.02)
[2021-01-10 01:08] LABS: ALKALINE PHOSPHATASE 92 U/L (45-117); BILIRUBIN,TOTAL 0.3 mg/dL (0.2-1.0); TOTAL PROTEIN 7.5 g/dL (6.4-8.2)
[2021-01-10] MEDS ORDERED: CEFAZOLIN PMX 1GM/50ML 50 ML ONE (02:11)
--- NOTE | 2021-01-10 02:48 | NUR ---
Break RN: TIN established. Medicated patient per mar.
--- NOTE | 2021-01-10 03:13 | NUR ---
Patient is resting comfortably in bed. Bed in lowest, rails engaged, call light on lap. Vital Signs within normal limits. WCTM. abdulaziz used bedside commode earlier. urinated. pt back in bed. attached to all monitors, vss. wctm
--- NOTE | 2021-01-10 03:49 | NUR ---
PT TRANSFERRED TO BEDSIDE COMMODE.
--- NOTE | 2021-01-10 04:05 | NUR ---
PT BACK IN BED, ATTACHED TO ALL MONITORS. VSS. DHAVALN
[2021-01-10] MEDS ORDERED: ONDANSETRON 2MG/ML, 2ML IVPush PRN (05:00)
[2021-01-10] MEDS ORDERED: ACETAMINOPHEN 325 MG TABLET PO PRN (05:00)
[2021-01-10] MEDS ORDERED: ENOXAPARIN 40 MG/0.4 ML SQ SCH (05:00)
[2021-01-10] MEDS ORDERED: PHARMACY MAY ADJ FOR RENAL FX MC PRN (05:00)
[2021-01-10] MEDS ORDERED: POLYETHYLENE GLYCOL 17 GM PACKET PO PRN (05:00)
[2021-01-10] MEDS ORDERED: LABETALOL 5MG/ML, 20ML IVPush PRN (05:00)
[2021-01-10] MEDS ORDERED: VANCOMYCIN PER PHARMACY MC PRN (05:00)
[2021-01-10 05:11] LABS: BASOPHILS % (AUTO) 0 % (0-1); EOSINOPHILS % (AUTO) 1 % (1-7); LYMPHOCYTES % (AUTO) 5 % (22-44); MEAN CORPUSCULAR HEMOGLOBIN 33.2 pg (27.0-34.8); MEAN CORPUSCULAR HGB CONC 32.5 g/dL (32.4-35.8); MEAN PLATELET VOLUME 7.9 fL (7.4-10.4); MONOCYTES % (AUTO) 6 % (2-9); NEUTROPHILS % (AUTO) 88 % (42-75); PLATELET COUNT 287 x10^3/uL (130-400); RED BLOOD COUNT 3.09 x10^6/uL (3.82-5.3); RED CELL DISTRIBUTION WIDTH 17.6 % (9.6-15.2)
--- NOTE | 2021-01-10 05:14 | NUR ---
PT SLEEPING. NADN. VSS. WCTM
[2021-01-10 05:16] LABS: ANION GAP 5 mmol/L (5-15); CALCIUM 8.4 mg/dL (8.5-10.1); CHLORIDE 113 mmol/L (98-107); CREATININE 1.26 mg/dL (0.55-1.02)
[2021-01-10] MEDS ORDERED: GLUCAGON 1 MG IM PRN (05:30)
[2021-01-10] MEDS ORDERED: DEXTROSE 4 GM TAB.CHEW PO PRN (05:30)
[2021-01-10] MEDS ORDERED: DEXTROSE 50%, 50ML SYRINGE IVPush PRN (05:30)
--- NOTE | 2021-01-10 05:37 | NUR ---
GAVE REPORT TO TOAN ROMERO
[2021-01-10 05:55] VITALS: BP 114/79
[2021-01-10] MEDS ORDERED: PHARMACOKINETIC MONITORING MC PRN (06:00)
[2021-01-10] MEDS: LACTATED RINGERS 1,000 ML IV SCH ×2 (06:16→20:44)
[2021-01-10] MEDS: INSULIN LISPRO 100 UNITS/ML, PEN SQ-INSULIN SCH ×4 (07:00→20:42)
[2021-01-10 07:43] VITALS: BP 137/75
[2021-01-10] MEDS: SODIUM CHLORIDE FLUSH 10ML SYR IVF SCH ×2 (08:21→20:42)
[2021-01-10] MEDS: CEFAZOLIN PMX 2GM/50ML 50 ML IVPB SCH ×2 (08:24→16:00)
[2021-01-10] MEDS: OXYcodone/APAP 7.5/325MG TABLET PO PRN ×2 (12:34→19:09)
[2021-01-10 12:50] VITALS: BP 136/80
[2021-01-10 19:23] VITALS: BP 128/59
[2021-01-10] MEDS: MELATONIN 5 MG TABLET PO PRN (20:41)
[2021-01-10] MEDS: ENOXAPARIN 40 MG/0.4 ML SQ SCH (20:41)
[2021-01-10] MEDS: VANCOMYCIN 2,000 MG in SODIUM CHLORIDE 0.9% 500 ML IV SCH (21:52)
[2021-01-11] MEDS: CEFAZOLIN PMX 2GM/50ML 50 ML IVPB SCH ×2 (00:09→07:53)
[2021-01-11 01:18] VITALS: BP 146/65
[2021-01-11] MEDS: OXYcodone/APAP 7.5/325MG TABLET PO PRN (03:27)
[2021-01-11] MEDS: PREGABALIN 200 MG CAPSULE PO SCH ×4 (05:41→22:33)
[2021-01-11] MEDS: ACETAMINOPHEN 500 MG TABLET PO SCH ×5 (05:46→23:09)
[2021-01-11 06:28] VITALS: BP 128/71
[2021-01-11] MEDS ORDERED: MORPHINE SULFATE 4 MG/ML, 1ML ONE (06:49)
[2021-01-11] MEDS: INSULIN LISPRO 100 UNITS/ML, PEN SQ-INSULIN SCH ×4 (07:00→22:34)
[2021-01-11] MEDS ORDERED: morphine SULFATE/PF 1 MG/ML, 10ML IV PRN (07:00)
[2021-01-11] MEDS: ENOXAPARIN 40 MG/0.4 ML SQ SCH ×2 (07:54→22:00)
[2021-01-11] MEDS: OXYcodone IR 5MG TABLET PO PRN ×5 (07:55→23:10)
[2021-01-11] MEDS ORDERED: TIZANIDINE 4MG TABLET ONE (08:40)
[2021-01-11] MEDS: TIZANIDINE 4MG TABLET PO PRN ×3 (08:43→21:59)
[2021-01-11] MEDS: SODIUM CHLORIDE FLUSH 10ML SYR IVF SCH ×2 (09:00→22:03)
[2021-01-11] MEDS ORDERED: COLE625T13 PO (10:01)
[2021-01-11] MEDS ORDERED: MORP-29 PO ×2 (10:01)
[2021-01-11] MEDS: morphine SULFATE 10 MG/ML, 1ML IV PRN ×2 (10:06→17:08)
[2021-01-11] MEDS: ERTAPENEM 1 GM in SODIUM CHLORIDE 0.9% 50 ML IV SCH (10:06)
[2021-01-11] MEDS ORDERED: LOSA50TA14 PO (10:12)
[2021-01-11] MEDS ORDERED: ATOR40TA78 PO (10:12)
[2021-01-11] MEDS ORDERED: NORT25CA78 PO (10:12)
[2021-01-11] MEDS ORDERED: [UNRECOGNIZED DRUG - CODE] PO (10:12)
[2021-01-11] MEDS ORDERED: CELE-47 PO (10:12)
[2021-01-11] MEDS ORDERED: ALEN70TA77 PO (10:12)
[2021-01-11] MEDS ORDERED: NORT25CA3 PO (10:12)
[2021-01-11] MEDS ORDERED: METO-264 PO (10:12)
[2021-01-11] MEDS ORDERED: NORT75CA4 PO (10:12)
[2021-01-11] MEDS ORDERED: TIZA4TAB2 PO (10:12)
[2021-01-11] MEDS ORDERED: LUBIPROSTONE 24 MCG CAPSULE PO SCH (12:00)
[2021-01-11] MEDS ORDERED: morphine SULFATE 60 MG TABLET.ER PO SCH (12:00)
[2021-01-11] MEDS ORDERED: ZOLPIDEM 10MG TABLET PO PRN (12:00)
[2021-01-11] MEDS: PAROXETINE 20 MG TABLET PO SCH (14:53)
[2021-01-11] MEDS: MULTIVITAMIN 1 TABLET PO SCH (14:53)
[2021-01-11] MEDS: LOSARTAN 50MG TABLET PO SCH (14:54)
[2021-01-11] MEDS: OMEPRAZOLE 20 MG CAPSULE.DR PO SCH (14:54)
[2021-01-11] MEDS: FOLIC ACID 1 MG TABLET PO SCH ×2 (14:54→22:04)
[2021-01-11 15:34] VITALS: BP 144/70
[2021-01-11] MEDS: VANCOMYCIN 2,000 MG in SODIUM CHLORIDE 0.9% 500 ML IV SCH (15:39)
[2021-01-11 19:59] VITALS: BP 120/70
[2021-01-11] MEDS: ATORVASTATIN 20 MG TABLET PO SCH (21:52)
[2021-01-11] MEDS: NORTRIPTYLINE 25 MG CAPSULE PO SCH (21:53)
[2021-01-11 22:27] VITALS: BP 135/71
[2021-01-11] MEDS: COLESEVELAM 625 MG TABLET PO SCH (22:33)
[2021-01-11] MEDS: METOPROLOL SUCCINATE 50 MG TAB.ER.24H PO SCH (22:33)
[2021-01-11] MEDS: INSULIN GLARGINE 100 UNITS/ML, PEN SQ-INSULIN SCH (22:35)
[2021-01-12 00:30] VITALS: BP 94/60
[2021-01-12] MEDS: ACETAMINOPHEN 500 MG TABLET PO SCH ×4 (03:29→20:09)
[2021-01-12] MEDS: OXYcodone IR 5MG TABLET PO PRN ×2 (03:30→08:25)
[2021-01-12] MEDS: morphine SULFATE 60 MG TABLET.ER PO SCH ×2 (04:02→17:10)
[2021-01-12 05:02] LABS: BASOPHILS % (AUTO) 1 % (0-1); EOSINOPHILS % (AUTO) 1 % (1-7); LYMPHOCYTES % (AUTO) 5 % (22-44); MEAN CORPUSCULAR HEMOGLOBIN 33.2 pg (27.0-34.8); MEAN CORPUSCULAR HGB CONC 32.8 g/dL (32.4-35.8); MEAN PLATELET VOLUME 8.2 fL (7.4-10.4); MONOCYTES % (AUTO) 6 % (2-9); NEUTROPHILS % (AUTO) 87 % (42-75); PLATELET COUNT 328 x10^3/uL (130-400); RED BLOOD COUNT 3.12 x10^6/uL (3.82-5.3); RED CELL DISTRIBUTION WIDTH 17.3 % (9.6-15.2)
[2021-01-12 05:09] LABS: ANION GAP 8 mmol/L (5-15); CALCIUM 8.2 mg/dL (8.5-10.1); CHLORIDE 108 mmol/L (98-107)
[2021-01-12 05:12] LABS: CREATININE 0.84 mg/dL (0.55-1.02)
[2021-01-12] MEDS: TIZANIDINE 4MG TABLET PO PRN ×3 (06:45→17:11)
[2021-01-12] MEDS: INSULIN LISPRO 100 UNITS/ML, PEN SQ-INSULIN SCH ×4 (07:00→22:31)
[2021-01-12] MEDS: SODIUM CHLORIDE FLUSH 10ML SYR IVF SCH ×2 (09:00→21:00)
[2021-01-12] MEDS: morphine SULFATE 10 MG/ML, 1ML IV PRN ×2 (09:34→12:44)
[2021-01-12] MEDS: INSULIN GLARGINE 100 UNITS/ML, PEN SQ-INSULIN SCH ×2 (09:34→22:32)
[2021-01-12] MEDS: LUBIPROSTONE 24 MCG CAPSULE PO SCH ×2 (10:19→22:21)
[2021-01-12] MEDS: ASPIRIN 81 MG TABLET EC PO SCH (10:19)
[2021-01-12] MEDS: PREGABALIN 200 MG CAPSULE PO SCH ×2 (10:19→22:21)
[2021-01-12] MEDS: ENOXAPARIN 40 MG/0.4 ML SQ SCH ×2 (10:19→22:23)
[2021-01-12] MEDS: OMEPRAZOLE 20 MG CAPSULE.DR PO SCH (10:20)
[2021-01-12] MEDS: DOCUSATE 100 MG CAPSULE PO SCH (10:20)
[2021-01-12] MEDS: COLESEVELAM 625 MG TABLET PO SCH ×2 (10:20→22:21)
[2021-01-12] MEDS: MULTIVITAMIN 1 TABLET PO SCH (10:20)
[2021-01-12] MEDS: FOLIC ACID 1 MG TABLET PO SCH ×2 (10:20→22:22)
[2021-01-12] MEDS: PAROXETINE 20 MG TABLET PO SCH (10:20)
[2021-01-12 10:28] VITALS: BP 99/62
[2021-01-12] MEDS: LOSARTAN 50MG TABLET PO SCH (10:35)
[2021-01-12] MEDS: ERTAPENEM 1 GM in SODIUM CHLORIDE 0.9% 50 ML IV SCH (11:34)
[2021-01-12 12:46] VITALS: BP 131/78
[2021-01-12] MEDS ORDERED: GADOTERATE 7.5 MMOL/15ML SYR ONE (15:19)
[2021-01-12] MEDS ORDERED: GADOTERATE 5 MMOL/10ML SYR ONE (15:19)
[2021-01-12 19:44] VITALS: BP 126/76
[2021-01-12] MEDS: VANCOMYCIN 2,000 MG in SODIUM CHLORIDE 0.9% 500 ML IV SCH (20:08)
[2021-01-12] MEDS: NORTRIPTYLINE 25 MG CAPSULE PO SCH (22:21)
[2021-01-12] MEDS: METOPROLOL SUCCINATE 50 MG TAB.ER.24H PO SCH (22:22)
[2021-01-12] MEDS: ATORVASTATIN 20 MG TABLET PO SCH (22:22)
[2021-01-12] MEDS: MELATONIN 5 MG TABLET PO PRN (22:48)
[2021-01-13] MEDS: ACETAMINOPHEN 500 MG TABLET PO SCH ×6 (00:57→20:15)
[2021-01-13] MEDS: TIZANIDINE 4MG TABLET PO PRN ×3 (00:57→17:39)
[2021-01-13 01:02] VITALS: BP 130/74
[2021-01-13] MEDS: morphine SULFATE 60 MG TABLET.ER PO SCH ×2 (04:03→16:30)
[2021-01-13 05:16] LABS: BASOPHILS % (AUTO) 1 % (0-1); EOSINOPHILS % (AUTO) 3 % (1-7); LYMPHOCYTES % (AUTO) 7 % (22-44); MEAN CORPUSCULAR HEMOGLOBIN 33.3 pg (27.0-34.8); MEAN CORPUSCULAR HGB CONC 32.9 g/dL (32.4-35.8); MEAN PLATELET VOLUME 7.9 fL (7.4-10.4); MONOCYTES % (AUTO) 11 % (2-9); NEUTROPHILS % (AUTO) 78 % (42-75); PLATELET COUNT 392 x10^3/uL (130-400); RED BLOOD COUNT 3.05 x10^6/uL (3.82-5.3); RED CELL DISTRIBUTION WIDTH 17.1 % (9.6-15.2)
[2021-01-13 05:21] LABS: CHLORIDE 111 mmol/L (98-107)
[2021-01-13 05:36] LABS: ANION GAP 6 mmol/L (5-15); CALCIUM 8.1 mg/dL (8.5-10.1); CREATININE 0.67 mg/dL (0.55-1.02)
[2021-01-13] MEDS: INSULIN LISPRO 100 UNITS/ML, PEN SQ-INSULIN SCH ×4 (06:06→20:19)
[2021-01-13] MEDS: MULTIVITAMIN 1 TABLET PO SCH (09:05)
[2021-01-13] MEDS: ENOXAPARIN 40 MG/0.4 ML SQ SCH ×2 (09:06→20:17)
[2021-01-13] MEDS: ASPIRIN 81 MG TABLET EC PO SCH (09:06)
[2021-01-13] MEDS: FOLIC ACID 1 MG TABLET PO SCH ×2 (09:06→20:15)
[2021-01-13] MEDS: LOSARTAN 50MG TABLET PO SCH (09:06)
[2021-01-13] MEDS: OMEPRAZOLE 20 MG CAPSULE.DR PO SCH (09:07)
[2021-01-13] MEDS: INSULIN GLARGINE 100 UNITS/ML, PEN SQ-INSULIN SCH ×2 (09:22→20:20)
[2021-01-13] MEDS: DOCUSATE 100 MG CAPSULE PO SCH (09:42)
[2021-01-13] MEDS: morphine SULFATE 10 MG/ML, 1ML IV PRN (09:42)
[2021-01-13] MEDS: PREGABALIN 200 MG CAPSULE PO SCH ×2 (09:45→20:15)
[2021-01-13] MEDS: COLESEVELAM 625 MG TABLET PO SCH ×2 (09:45→20:15)
[2021-01-13] MEDS: LUBIPROSTONE 24 MCG CAPSULE PO SCH ×2 (09:45→20:00)
[2021-01-13] MEDS: PAROXETINE 20 MG TABLET PO SCH (09:45)
[2021-01-13] MEDS: SODIUM CHLORIDE FLUSH 10ML SYR IVF SCH ×2 (09:49→20:21)
[2021-01-13] MEDS: ERTAPENEM 1 GM in SODIUM CHLORIDE 0.9% 50 ML IV SCH (10:01)
[2021-01-13] MEDS: OXYcodone IR 5MG TABLET PO PRN (11:28)
[2021-01-13 12:52] VITALS: BP 102/56
[2021-01-13] MEDS: VANCOMYCIN 2,000 MG in SODIUM CHLORIDE 0.9% 500 ML IV SCH (16:30)
[2021-01-13] MEDS: ATORVASTATIN 20 MG TABLET PO SCH (20:15)
[2021-01-13] MEDS: NORTRIPTYLINE 25 MG CAPSULE PO SCH (20:15)
[2021-01-13] MEDS: METOPROLOL SUCCINATE 50 MG TAB.ER.24H PO SCH (20:15)
[2021-01-13 20:23] VITALS: BP 104/64
[2021-01-14] MEDS ORDERED: MIDAZOLAM 1 MG/ML, 2ML ONE (00:25)
[2021-01-14] MEDS ORDERED: FENTANYL PF 250 MCG/5ML ONE (00:26)
[2021-01-14] MEDS ORDERED: LABETALOL 5MG/ML, 20ML IV PRN (01:00)
[2021-01-14] MEDS ORDERED: MIDAZOLAM 1 MG/ML, 2ML IV PRN (01:00)
[2021-01-14] MEDS ORDERED: ONDANSETRON 2MG/ML, 2ML IVPush PRN (01:00)
[2021-01-14] MEDS ORDERED: ACETAMINOPHEN 325 MG TABLET PO PRN (01:00)
[2021-01-14] MEDS ORDERED: hydrALAzine 20 MG/ML, 1ML IV PRN (01:00)
[2021-01-14] MEDS ORDERED: PROMETHAZINE 25 MG/ML, 1ML IVPush PRN (01:00)
[2021-01-14] MEDS ORDERED: DIPHENHYDRAMINE 50 MG/ML, 1ML IVPush PRN ×2 (01:00)
[2021-01-14] MEDS ORDERED: PROMETHAZINE 12.5 MG SUPP PR PRN (01:00)
[2021-01-14] MEDS ORDERED: ALBUTEROL SULFATE 2.5 MG/3 ML NPPB PRN (01:00)
[2021-01-14] MEDS ORDERED: EPHEDRINE 50 MG/ML, 1ML IVPush PRN (01:00)
[2021-01-14] MEDS ORDERED: FENTANYL PF 100 MCG/2ML ONE ×5 (01:37→03:23)
[2021-01-14] MEDS: FENTANYL PF 100 MCG/2ML IV PRN ×5 (01:39→02:25)
[2021-01-14] MEDS: DIAZEPAM 5 MG/ML, 2ML IVPush PRN ×2 (01:40→01:56)
[2021-01-14] MEDS ORDERED: DIAZEPAM 5 MG/ML, 2ML ONE (01:42)
[2021-01-14] MEDS ORDERED: PROMETHAZINE 25 MG/ML, 1ML ONE (01:48)
[2021-01-14] MEDS: FENTANYL PF 100 MCG/2ML IVPush PRN ×3 (02:35→02:59)
[2021-01-14 03:41] VITALS: BP 127/80
[2021-01-14] MEDS: ACETAMINOPHEN 500 MG TABLET PO SCH ×6 (03:51→22:00)
[2021-01-14] MEDS: morphine SULFATE 60 MG TABLET.ER PO SCH ×2 (03:51→15:51)
[2021-01-14] MEDS: TIZANIDINE 4MG TABLET PO PRN ×3 (03:51→18:46)
[2021-01-14] MEDS: morphine SULFATE 10 MG/ML, 1ML IV PRN ×6 (04:02→23:57)
[2021-01-14] MEDS: MELATONIN 5 MG TABLET PO PRN ×2 (04:10→21:45)
[2021-01-14 05:35] LABS: BASOPHILS % (AUTO) 1 % (0-1); EOSINOPHILS % (AUTO) 3 % (1-7); LYMPHOCYTES % (AUTO) 9 % (22-44); MEAN CORPUSCULAR HEMOGLOBIN 33.1 pg (27.0-34.8); MEAN CORPUSCULAR HGB CONC 32.6 g/dL (32.4-35.8); MEAN PLATELET VOLUME 7.7 fL (7.4-10.4); MONOCYTES % (AUTO) 10 % (2-9); NEUTROPHILS % (AUTO) 77 % (42-75); PLATELET COUNT 451 x10^3/uL (130-400); RED BLOOD COUNT 2.99 x10^6/uL (3.82-5.3); RED CELL DISTRIBUTION WIDTH 17.8 % (9.6-15.2)
[2021-01-14 05:46] LABS: CHLORIDE 111 mmol/L (98-107)
[2021-01-14 05:54] LABS: ANION GAP 4 mmol/L (5-15); CALCIUM 7.8 mg/dL (8.5-10.1); CREATININE 0.68 mg/dL (0.55-1.02)
[2021-01-14] MEDS: INSULIN LISPRO 100 UNITS/ML, PEN SQ-INSULIN SCH ×4 (07:00→21:45)
[2021-01-14 08:17] VITALS: BP 98/62
[2021-01-14] MEDS: SODIUM CHLORIDE FLUSH 10ML SYR IVF SCH ×2 (09:00→21:45)
[2021-01-14] MEDS: FOLIC ACID 1 MG TABLET PO SCH ×2 (09:32→21:45)
[2021-01-14] MEDS: ASPIRIN 81 MG TABLET EC PO SCH (09:32)
[2021-01-14] MEDS: OMEPRAZOLE 20 MG CAPSULE.DR PO SCH (09:32)
[2021-01-14] MEDS: DOCUSATE 100 MG CAPSULE PO SCH (09:32)
[2021-01-14] MEDS: PREGABALIN 200 MG CAPSULE PO SCH ×2 (09:32→21:45)
[2021-01-14] MEDS: COLESEVELAM 625 MG TABLET PO SCH ×2 (09:32→21:45)
[2021-01-14] MEDS: PAROXETINE 20 MG TABLET PO SCH (09:32)
[2021-01-14] MEDS: LUBIPROSTONE 24 MCG CAPSULE PO SCH ×2 (09:33→21:45)
[2021-01-14] MEDS: MULTIVITAMIN 1 TABLET PO SCH (09:33)
[2021-01-14] MEDS: LOSARTAN 50MG TABLET PO SCH (09:33)
[2021-01-14] MEDS: ENOXAPARIN 40 MG/0.4 ML SQ SCH ×2 (09:33→21:45)
[2021-01-14] MEDS: INSULIN GLARGINE 100 UNITS/ML, PEN SQ-INSULIN SCH ×2 (09:33→21:45)
[2021-01-14] MEDS: ERTAPENEM 1 GM in SODIUM CHLORIDE 0.9% 50 ML IV SCH (11:49)
[2021-01-14] MEDS: OXYcodone IR 5MG TABLET PO PRN ×2 (11:50→21:45)
[2021-01-14 14:28] VITALS: BP 116/62
[2021-01-14] MEDS: SENNA/DOCUSATE TABLET PO SCH (15:51)
[2021-01-14 20:12] VITALS: BP 91/57
[2021-01-14] MEDS: NORTRIPTYLINE 25 MG CAPSULE PO SCH (21:45)
[2021-01-14] MEDS: ATORVASTATIN 20 MG TABLET PO SCH (21:45)
[2021-01-14] MEDS: METOPROLOL SUCCINATE 50 MG TAB.ER.24H PO SCH (21:45)
[2021-01-15] MEDS: TIZANIDINE 4MG TABLET PO PRN ×4 (00:30→20:02)
[2021-01-15 00:47] VITALS: BP 100/63
[2021-01-15] MEDS: morphine SULFATE 60 MG TABLET.ER PO SCH ×2 (03:31→16:30)
[2021-01-15] MEDS: ACETAMINOPHEN 500 MG TABLET PO SCH ×5 (03:31→20:38)
[2021-01-15] MEDS: INSULIN LISPRO 100 UNITS/ML, PEN SQ-INSULIN SCH ×4 (06:10→20:40)
[2021-01-15 07:07] VITALS: BP 115/65
[2021-01-15] MEDS: morphine SULFATE 10 MG/ML, 1ML IV PRN ×3 (08:42→20:02)
[2021-01-15] MEDS ORDERED: METHOTREXATE 2.5 MG TABLET PO SCH (09:00)
[2021-01-15] MEDS: ASPIRIN 81 MG TABLET EC PO SCH (10:07)
[2021-01-15] MEDS: SODIUM CHLORIDE FLUSH 10ML SYR IVF SCH ×2 (10:07→20:43)
[2021-01-15] MEDS: PREGABALIN 200 MG CAPSULE PO SCH ×2 (10:07→20:39)
[2021-01-15] MEDS: MULTIVITAMIN 1 TABLET PO SCH (10:08)
[2021-01-15] MEDS: SENNA/DOCUSATE TABLET PO SCH (10:08)
[2021-01-15] MEDS: DOCUSATE 100 MG CAPSULE PO SCH (10:08)
[2021-01-15] MEDS: FOLIC ACID 1 MG TABLET PO SCH ×2 (10:08→20:39)
[2021-01-15] MEDS: LOSARTAN 50MG TABLET PO SCH (10:08)
[2021-01-15] MEDS: COLESEVELAM 625 MG TABLET PO SCH ×2 (10:09→20:38)
[2021-01-15] MEDS: LUBIPROSTONE 24 MCG CAPSULE PO SCH ×2 (10:09→20:38)
[2021-01-15] MEDS: OMEPRAZOLE 20 MG CAPSULE.DR PO SCH (10:09)
[2021-01-15] MEDS: PAROXETINE 20 MG TABLET PO SCH (10:09)
[2021-01-15] MEDS: INSULIN GLARGINE 100 UNITS/ML, PEN SQ-INSULIN SCH ×2 (10:10→20:40)
[2021-01-15] MEDS: ENOXAPARIN 40 MG/0.4 ML SQ SCH ×2 (10:10→20:39)
[2021-01-15] MEDS: OXYcodone IR 5MG TABLET PO PRN (11:31)
[2021-01-15] MEDS: ERTAPENEM 1 GM in SODIUM CHLORIDE 0.9% 50 ML IV SCH (12:32)
[2021-01-15 14:43] VITALS: BP 99/60
[2021-01-15] MEDS ORDERED: MORPHINE SULFATE 4 MG/ML, 1ML ONE (20:00)
[2021-01-15 20:07] VITALS: BP 102/65
[2021-01-15] MEDS: NORTRIPTYLINE 25 MG CAPSULE PO SCH (20:38)
[2021-01-15] MEDS: ATORVASTATIN 20 MG TABLET PO SCH (20:39)
[2021-01-15] MEDS: METOPROLOL SUCCINATE 50 MG TAB.ER.24H PO SCH (20:39)
[2021-01-15] MEDS: MELATONIN 5 MG TABLET PO PRN (23:00)
[2021-01-16] MEDS: ACETAMINOPHEN 500 MG TABLET PO SCH ×6 (01:57→23:30)
[2021-01-16] MEDS: TIZANIDINE 4MG TABLET PO PRN ×4 (01:57→23:33)
[2021-01-16 01:58] VITALS: BP 99/59
[2021-01-16] MEDS: morphine SULFATE 60 MG TABLET.ER PO SCH ×2 (04:09→16:48)
[2021-01-16 05:14] LABS: BASOPHILS % (AUTO) 1 % (0-1); EOSINOPHILS % (AUTO) 4 % (1-7); LYMPHOCYTES % (AUTO) 10 % (22-44); MEAN CORPUSCULAR HEMOGLOBIN 33.5 pg (27.0-34.8); MEAN CORPUSCULAR HGB CONC 32.8 g/dL (32.4-35.8); MEAN PLATELET VOLUME 7.1 fL (7.4-10.4); MONOCYTES % (AUTO) 11 % (2-9); NEUTROPHILS % (AUTO) 75 % (42-75); PLATELET COUNT 486 x10^3/uL (130-400); RED BLOOD COUNT 2.79 x10^6/uL (3.82-5.3)
[2021-01-16 05:23] LABS: CALCIUM 7.3 mg/dL (8.5-10.1); CHLORIDE 110 mmol/L (98-107)
[2021-01-16 05:34] LABS: ANION GAP 4 mmol/L (5-15); CREATININE 0.71 mg/dL (0.55-1.02)
[2021-01-16 05:35] LABS: ALANINE AMINOTRANSFERASE 15 U/L (12-78); ALBUMIN 1.7 g/dL (3.4-5.0); ALKALINE PHOSPHATASE 66 U/L (45-117); BILIRUBIN,TOTAL 0.2 mg/dL (0.2-1.0)
[2021-01-16 06:07] LABS: HCT (SEDRATE) 28.5 % (34.6-47.8)
[2021-01-16] MEDS: INSULIN LISPRO 100 UNITS/ML, PEN SQ-INSULIN SCH ×4 (07:00→21:00)
[2021-01-16 07:45] VITALS: BP 119/75
[2021-01-16] MEDS: PREGABALIN 200 MG CAPSULE PO SCH ×2 (09:00→21:50)
[2021-01-16] MEDS: LUBIPROSTONE 24 MCG CAPSULE PO SCH ×2 (09:00→21:43)
[2021-01-16] MEDS: morphine SULFATE 10 MG/ML, 1ML IV PRN ×3 (09:19→18:14)
[2021-01-16] MEDS: SODIUM CHLORIDE FLUSH 10ML SYR IVF SCH ×2 (09:22→21:42)
[2021-01-16] MEDS: CEFTRIAXONE 2 GM in DEXTROSE 5% 50 ML IVPB SCH (09:43)
[2021-01-16] MEDS: ENOXAPARIN 40 MG/0.4 ML SQ SCH ×2 (10:08→21:44)
[2021-01-16] MEDS: INSULIN GLARGINE 100 UNITS/ML, PEN SQ-INSULIN SCH ×2 (10:09→21:45)
[2021-01-16] MEDS: COLESEVELAM 625 MG TABLET PO SCH ×2 (10:11→21:43)
[2021-01-16] MEDS: SENNA/DOCUSATE TABLET PO SCH (10:11)
[2021-01-16] MEDS: DOCUSATE 100 MG CAPSULE PO SCH (10:11)
[2021-01-16] MEDS: ASPIRIN 81 MG TABLET EC PO SCH (10:11)
[2021-01-16] MEDS: FOLIC ACID 1 MG TABLET PO SCH ×2 (10:12→21:43)
[2021-01-16] MEDS: PAROXETINE 20 MG TABLET PO SCH (10:12)
[2021-01-16] MEDS: MULTIVITAMIN 1 TABLET PO SCH (10:13)
[2021-01-16] MEDS: LOSARTAN 50MG TABLET PO SCH (10:13)
[2021-01-16] MEDS: OMEPRAZOLE 20 MG CAPSULE.DR PO SCH (10:14)
[2021-01-16] MEDS: OXYcodone IR 5MG TABLET PO PRN (11:00)
[2021-01-16] MEDS ORDERED: CEPH-376 PO (12:27)
[2021-01-16] MEDS ORDERED: CEFT2PIG2 IV (12:27)
[2021-01-16 15:55] VITALS: BP 123/77
[2021-01-16 19:41] VITALS: BP 120/75
[2021-01-16] MEDS: ATORVASTATIN 20 MG TABLET PO SCH (21:43)
[2021-01-16] MEDS: METOPROLOL SUCCINATE 50 MG TAB.ER.24H PO SCH (21:43)
[2021-01-16] MEDS: NORTRIPTYLINE 25 MG CAPSULE PO SCH (21:51)
[2021-01-16] MEDS: MELATONIN 5 MG TABLET PO PRN (22:54)
[2021-01-17 02:05] VITALS: BP 109/70
[2021-01-17] MEDS: ACETAMINOPHEN 500 MG TABLET PO SCH ×4 (03:59→16:11)
[2021-01-17] MEDS: morphine SULFATE 60 MG TABLET.ER PO SCH ×2 (04:01→16:23)
[2021-01-17] MEDS: TIZANIDINE 4MG TABLET PO PRN ×3 (05:26→17:44)
[2021-01-17] MEDS: INSULIN LISPRO 100 UNITS/ML, PEN SQ-INSULIN SCH ×4 (07:00→16:28)
[2021-01-17 07:55] VITALS: BP 131/79
[2021-01-17] MEDS: ASPIRIN 81 MG TABLET EC PO SCH (08:19)
[2021-01-17] MEDS: MULTIVITAMIN 1 TABLET PO SCH (08:20)
[2021-01-17] MEDS: LOSARTAN 50MG TABLET PO SCH (08:20)
[2021-01-17] MEDS: OMEPRAZOLE 20 MG CAPSULE.DR PO SCH (08:20)
[2021-01-17] MEDS: PREGABALIN 200 MG CAPSULE PO SCH (08:20)
[2021-01-17] MEDS: FOLIC ACID 1 MG TABLET PO SCH (08:20)
[2021-01-17] MEDS: PAROXETINE 20 MG TABLET PO SCH (08:20)
[2021-01-17] MEDS: ENOXAPARIN 40 MG/0.4 ML SQ SCH (08:21)
[2021-01-17] MEDS: COLESEVELAM 625 MG TABLET PO SCH (08:21)
[2021-01-17] MEDS: SODIUM CHLORIDE FLUSH 10ML SYR IVF SCH (08:22)
[2021-01-17] MEDS: LUBIPROSTONE 24 MCG CAPSULE PO SCH (08:22)
[2021-01-17] MEDS: SENNA/DOCUSATE TABLET PO SCH (08:23)
[2021-01-17] MEDS: DOCUSATE 100 MG CAPSULE PO SCH (08:39)
[2021-01-17] MEDS: CEFTRIAXONE 2 GM in DEXTROSE 5% 50 ML IVPB SCH (08:40)
[2021-01-17] MEDS: OXYcodone IR 5MG TABLET PO PRN ×2 (08:54→13:48)
[2021-01-17] MEDS: INSULIN GLARGINE 100 UNITS/ML, PEN SQ-INSULIN SCH (11:17)
[2021-01-17 13:12] VITALS: BP 91/54
== END 2021-01-17 18:52 | disposition home health service (06) | DRG 853 ==
LOC: ED 23:30 → EDIP 01-10 04:57 → 4NE 01-10 05:18
PROVIDERS: ADMIT Internal Medicine; ATTEND Internal Medicine
PROC: 0LBN0ZZ Excision of Right Lower Leg Tendon, Open Approach (ICD-10-PCS; 2021-01-14)
PROC: 0HBKXZZ Excision of Right Lower Leg Skin, External Approach (ICD-10-PCS; 2021-01-14)
PROC: 02HV33Z Insertion of Infusion Device into Superior Vena Cava, Percutaneous Approach (ICD-10-PCS; principal; 2021-01-16)
PROC: B5181ZA Fluoroscopy of Superior Vena Cava using Low Osmolar Contrast, Guidance (ICD-10-PCS; 2021-01-16)
PROC: B548ZZA Ultrasonography of Superior Vena Cava, Guidance (ICD-10-PCS; 2021-01-16)
DX: A41.9 Sepsis, unspecified organism (principal); N17.0 Acute kidney failure with tubular necrosis; L03.115 Cellulitis of right lower limb; Z68.43 Body mass index [BMI] 50.0-59.9, adult; M86.611 Other chronic osteomyelitis, right shoulder; L02.415 Cutaneous abscess of right lower limb; M00.9 Pyogenic arthritis, unspecified; E46 Unspecified protein-calorie malnutrition; I13.0 Hypertensive heart and chronic kidney disease with heart failure and stage 1 through stage 4 chronic kidney disease, or unspecified chronic kidney disease; E66.01 Morbid (severe) obesity due to excess calories; D86.9 Sarcoidosis, unspecified; E11.22 Type 2 diabetes mellitus with diabetic chronic kidney disease; E11.36 Type 2 diabetes mellitus with diabetic cataract; E11.65 Type 2 diabetes mellitus with hyperglycemia; Z98.84 Bariatric surgery status; Z98.61 Coronary angioplasty status; Z96.611 Presence of right artificial shoulder joint; S80.11XA Contusion of right lower leg, initial encounter; S40.021A Contusion of right upper arm, initial encounter; N18.30 Chronic kidney disease, stage 3 unspecified; M79.7 Fibromyalgia; M77.9 Enthesopathy, unspecified; M17.10 Unilateral primary osteoarthritis, unspecified knee; E11.69 Type 2 diabetes mellitus with other specified complication; E78.5 Hyperlipidemia, unspecified; F19.10 Other psychoactive substance abuse, uncomplicated; H40.9 Unspecified glaucoma; G89.29 Other chronic pain; I25.10 Atherosclerotic heart disease of native coronary artery without angina pectoris; I50.9 Heart failure, unspecified; X58.XXXA Exposure to other specified factors, initial encounter; I25.2 Old myocardial infarction; Z79.4 Long term (current) use of insulin; Z87.891 Personal history of nicotine dependence; Z83.3 Family history of diabetes mellitus; Z90.49 Acquired absence of other specified parts of digestive tract; Z79.2 Long term (current) use of antibiotics; Y93.89 Activity, other specified; Y92.89 Other specified places as the place of occurrence of the external cause; Y99.8 Other external cause status; Z20.822 Contact with and (suspected) exposure to COVID-19
CPT/HCPCS: 36415; 36573; 70450; 80048; 80053; 80202; 82962; 83605; 83735; 84100; 84145; 85025; 85651; 86140; 87015; 87040; 87070; 87075; 87077; 87102; 87116; 87176; 87186; 87205; 87206; 87635; 93005; 96374; 96375; G0378; J0690; J0696; J1335; J1650; J2250; J2274; J2405; J2550; J3010; J3360; J3370; J8610; A9575; C1751; J1815; J2270; J7040; J7120; J7512

== ENCOUNTER 2021-01-20 20:50 | Emergency (ER) | payer MEDICARE ==
[~2021-01-20] VITALS: Ht 170.2 cm; Wt 80.0 kg
[~2021-01-20 20:50] MED LIST changes: +ALEN70TA77 PO; +ATOR40TA78 PO; +CEFT2PIG2 IV; +CELE-47 PO; +COLE625T13 PO; +LOSA50TA14 PO; +METO-264 PO; +MORP-29 PO; +NORT25CA3 PO; +NORT75CA4 PO; +TIZA4TAB2 PO; +[UNRECOGNIZED DRUG - CODE] PO
[2021-01-20] MEDS ORDERED: morphine SULFATE 15 MG TAB.IR PO ONE (22:00)
--- NOTE | 2021-01-20 23:21 | NUR ---
RECEIVED REPORT FROM HEATHER GRAY. PATIENT PLACED ON HOSPITAL BED AND KEPT COMFORTABLE. ASSESSMENT MADE.
--- NOTE | 2021-01-20 23:31 | NUR ---
patient declined wound care at this time. states " that she will wait for the wound care team at 8 am " per wound vac not working for ~ 1 hr now. patient was medicated for pain by another RN earlier.
--- NOTE | 2021-01-21 00:34 | NUR ---
BREAK RN FOR PRIMARY RN MARCIANO. RECEIVED REPORT. PT IN RESTROOM WITH SPOUSE AT THIS TIME.
--- NOTE | 2021-01-21 00:50 | NUR ---
PT BACK IN ROOM RESTING COMFORTABLY ON HOSPITAL BED. CONVERSING WITH FAMILY MEMBER. NAD NOTED. RESP REGULAR AND UNLABORED. AMBULATES WITH STEADY GAIT. CALL LIGHT IN REACH. FALL PRECAUTIONS IN PLACE.
--- NOTE | 2021-01-21 01:13 | NUR ---
REPORT AND TRANSFER OF CARE BACK TO PRIMARY HEATHER TARIQ AT THIS TIME.
--- NOTE | 2021-01-21 02:39 | NUR ---
patient sleeping, respiration unlabored.
[2021-01-21 02:40] VITALS: BP 97/51
--- NOTE | 2021-01-21 04:13 | NUR ---
no changes. patient sleeping, respiration unlabored.
--- NOTE | 2021-01-21 07:03 | NUR ---
REPORT FROM MARCIANO ROMERO.
--- NOTE | 2021-01-21 08:15 | NUR ---
JUANA NULL AT BEDSIDE FOR WD CARE.
--- NOTE | 2021-01-21 10:03 | NUR ---
REPORT TO DASHAWN ROMERO. PT WOUND VAC CHANGED BY PT. PT NEEDS RIDE HOME, UNABLE TO GET INTO OWN CAR. THROUGHPUT RN AWARE, WILL CALL SW AND ARRANGE RIDE. REPORT TO DASHAWN ROMERO.
--- NOTE | 2021-01-21 10:06 | NUR ---
spoke with cm. cm is setting up ride home.
== END 2021-01-21 13:58 | disposition home or self-care (01) ==
LOC: ED 21:00
DX: L02.415 Cutaneous abscess of right lower limb (principal); D86.9 Sarcoidosis, unspecified; I25.10 Atherosclerotic heart disease of native coronary artery without angina pectoris; E11.22 Type 2 diabetes mellitus with diabetic chronic kidney disease; I13.10 Hypertensive heart and chronic kidney disease without heart failure, with stage 1 through stage 4 chronic kidney disease, or unspecified chronic kidney disease; N18.30 Chronic kidney disease, stage 3 unspecified
CPT/HCPCS: 99283